=== PATIENT | female | born 2000 | race Caucasian/White ===

== ENCOUNTER 2018-05-23 22:11 | Emergency (ER) | payer OTHER ==
[~2018-05-23] VITALS: Ht 162.6 cm; Wt 82.1 kg
== END 2018-05-23 23:16 | disposition home or self-care (01) ==
LOC: ER 22:11
DX: T78.1XXA Other adverse food reactions, not elsewhere classified, initial encounter (principal)

== ENCOUNTER 2019-05-12 12:49 | Emergency (ER) | payer OTHER ==
[~2019-05-12] VITALS: Ht 162.6 cm; Wt 77.1 kg
== END 2019-05-12 21:31 | disposition home or self-care (01) ==
LOC: ER 12:49
DX: O23.41 Unspecified infection of urinary tract in pregnancy, first trimester (principal); Z3A.01 Less than 8 weeks gestation of pregnancy

== ENCOUNTER 2022-06-27 14:51 | Emergency (ER) | payer OTHER ==
[~2022-06-27] VITALS: Ht 165.1 cm; Wt 79.8 kg
[2022-06-27] MEDS ORDERED: ORPHENADRINE C100 MG PO ×2 (19:02→19:03)
== END 2022-06-27 19:11 | disposition home or self-care (01) ==
LOC: ER 14:51
DX: M62.830 Muscle spasm of back (principal)